=== PATIENT | female | born 1935 | race Caucasian/White ===

== ENCOUNTER 2019-01-30 13:10 | Inpatient (IN) | payer MEDICARE, BC ==
[~2019-01-30] VITALS: Ht 157.5 cm; Wt 57.1 kg
[2019-01-30] MEDS ORDERED: ACETAMINOPHEN 500 MG TABLET PO ONE (13:30)
[2019-01-30 13:50] VITALS: BP 136/85
[2019-01-30] MEDS ORDERED: FOLI-17 PO (14:05)
[2019-01-30] MEDS ORDERED: AMLO-150 PO (14:05)
[2019-01-30] MEDS ORDERED: SOLI5TAB2 PO (14:05)
[2019-01-30] MEDS ORDERED: HYDR30CR7 TP (14:05)
[2019-01-30] MEDS ORDERED: potassium (14:05)
[2019-01-30] MEDS ORDERED: LACTATED RINGERS 1,000 ML IV SCH (14:10)
[2019-01-30] MEDS ORDERED: PLEASE ENTER HEIGHT AND WEIGHT MC SCH (14:30)
[2019-01-30 14:35] LABS: CULTURE INDICATED? YES; MICROSCOPIC INDICATED
[2019-01-30] MEDS ORDERED: FENTANYL PF 250 MCG/5ML ONE (16:46)
[2019-01-30] MEDS ORDERED: DEXAMETHASONE 4 MG/ML, 1ML ONE (17:04)
[2019-01-30] MEDS ORDERED: ROCURONIUM 10 MG/ML,10ML ONE (17:04)
[2019-01-30] MEDS ORDERED: PROPOFOL 10 MG/ML, 20ML ONE (17:04)
[2019-01-30] MEDS ORDERED: CEFAZOLIN 1,000 MG ONE (17:04)
[2019-01-30] MEDS ORDERED: SUCCINYLCHOLINE 20 MG/ML, 10ML ONE (17:04)
[2019-01-30] MEDS ORDERED: GENTAMICIN 80 MG/2 ML ONE (17:28)
[2019-01-30] MEDS ORDERED: MIDAZOLAM 1 MG/ML, 2ML IV PRN (18:30)
[2019-01-30] MEDS ORDERED: EPHEDRINE 50 MG/ML, 1ML IM PRN (18:30)
[2019-01-30] MEDS ORDERED: hydrALAzine 20 MG/ML, 1ML IV PRN (18:30)
[2019-01-30] MEDS ORDERED: EPHEDRINE 50 MG/ML, 1ML IVPush PRN (18:30)
[2019-01-30] MEDS ORDERED: ONDANSETRON ODT 8 MG PO PRN (18:30)
[2019-01-30] MEDS ORDERED: ONDANSETRON 2MG/ML, 2ML IV PRN ×2 (18:30→22:00)
[2019-01-30] MEDS ORDERED: DIPHENHYDRAMINE 50 MG/ML, 1ML IVPush PRN (18:30)
[2019-01-30] MEDS ORDERED: OXYcodone 5 MG/5 ML ORAL.SOL UDC PO PRN (18:30)
[2019-01-30] MEDS ORDERED: METOPROLOL 1 MG/ML, 5ML IV PRN (18:30)
[2019-01-30] MEDS ORDERED: MORPHINE SULFATE 4 MG/ML, 1ML IVPush PRN (18:30)
[2019-01-30] MEDS ORDERED: FENTANYL PF 100 MCG/2ML ONE (19:41)
[2019-01-30] MEDS ORDERED: OXYcodone 5 MG/5 ML ORAL.SOL UDC ONE (19:41)
[2019-01-30] MEDS ORDERED: hydrALAzine 20 MG/ML, 1ML ONE (19:42)
[2019-01-30] MEDS: FENTANYL PF 100 MCG/2ML IV PRN ×3 (19:47→20:07)
[2019-01-30] MEDS ORDERED: OPIUM/BELLADONNA SUPP.RECT 16.2-30 MG PR PRN (22:00)
[2019-01-30] MEDS: D5%-0.45NACL+KCL 20MEQ 1,000 ML IV SCH (23:13)
[2019-01-30] MEDS: ACETAMINOPHEN 325 MG TABLET PO PRN (23:52)
[2019-01-31 00:18] VITALS: BP 132/83
[2019-01-31] MEDS: CEFAZOLIN PMX 1GM/50ML 50 ML IV SCH ×2 (01:38→09:43)
[2019-01-31] MEDS: GENTAMICIN 80 MG in SODIUM CHLORIDE 0.9% 48 ML IV SCH ×2 (02:36→10:35)
[2019-01-31 04:36] VITALS: BP 118/77
[2019-01-31] MEDS: ACETAMINOPHEN 325 MG TABLET PO PRN ×2 (04:42→12:27)
[2019-01-31 07:34] VITALS: BP 102/67
[2019-01-31] MEDS ORDERED: AMLODIPINE 5 MG TABLET PO SCH (09:00)
[2019-01-31] MEDS ORDERED: HYDROCORTISONE CRM 2.5%, 20GM TP SCH (09:00)
[2019-01-31] MEDS ORDERED: SOLIFENACIN PO SCH (09:00)
[2019-01-31 09:11] LABS: ANION GAP 6 mmol/L (5-15); CALCIUM 7.7 mg/dL (8.5-10.1); CHLORIDE 111 mmol/L (98-107); CREATININE 0.81 mg/dL (0.55-1.02)
[2019-01-31] MEDS: D5%-0.45NACL+KCL 20MEQ 1,000 ML IV SCH (11:20)
[2019-02-26] MEDS ORDERED: FAMO20TA37 PO (10:01)
== END 2019-01-31 14:10 | disposition home or self-care (01) | DRG 669 ==
LOC: OUT 13:10 → 4NOR 21:27 → OUT 22:20 → DCLOUNGE 01-31 13:45
PROVIDERS: ADMIT Urology; ATTEND Urology
PROC: 0TBB8ZZ Excision of Bladder, Via Natural or Artificial Opening Endoscopic (ICD-10-PCS; principal; 2019-01-30 15:00)
DX: C67.9 Malignant neoplasm of bladder, unspecified (principal); R71.0 Precipitous drop in hematocrit; I10 Essential (primary) hypertension; N32.89 Other specified disorders of bladder; F41.9 Anxiety disorder, unspecified; H91.8X3 Other specified hearing loss, bilateral; M19.90 Unspecified osteoarthritis, unspecified site; F32.9 Major depressive disorder, single episode, unspecified; Z88.3 Allergy status to other anti-infective agents; Z88.2 Allergy status to sulfonamides; Z88.8 Allergy status to other drugs, medicaments and biological substances
CPT/HCPCS: 36415; 80048; 81001; 85014; 85018; 87086; 88305; 93005; G0378; J0690; J1100; J2704; J3010; J0330; J0360; J1580; J3480; J7120

== ENCOUNTER 2019-02-27 11:26 | Day surgery (SDC) | payer MEDICARE, BC ==
[2019-02-26 09:51] VITALS: BP 142/84
[~2019-02-27] VITALS: Ht 157.5 cm; Wt 53.0 kg
[~2019-02-27 11:26] MED LIST: AMLO-150 PO; FAMO20TA37 PO; FOLI-17 PO; HYDR30CR7 TP; SOLI5TAB2 PO; potassium
[2019-02-27] MEDS ORDERED: LACTATED RINGERS 1,000 ML IV SCH (12:09)
[2019-02-27] MEDS ORDERED: GEMCITABINE HCL BLADIN ONE (13:15)
[2019-02-27] MEDS ORDERED: STERILE WATER BLADIN ONE (13:15)
[2019-02-27] MEDS ORDERED: GEMCITABINE HCL IV ONE (13:30)
[2019-02-27] MEDS ORDERED: STERILE WATER IV ONE (13:30)
[2019-02-27] MEDS ORDERED: FENTANYL PF 250 MCG/5ML ONE (13:38)
[2019-02-27] MEDS ORDERED: CEFAZOLIN 1,000 MG ONE ×2 (13:39)
[2019-02-27] MEDS ORDERED: SODIUM CHLORIDE 0.9% PF 10ML ONE (13:39)
[2019-02-27] MEDS ORDERED: PROPOFOL 10 MG/ML, 20ML ONE (13:47)
[2019-02-27] MEDS ORDERED: DEXAMETHASONE 4 MG/ML, 1ML ONE (13:47)
[2019-02-27] MEDS ORDERED: ONDANSETRON 2MG/ML, 2ML ONE (13:47)
[2019-02-27] MEDS ORDERED: OXYcodone 5 MG/5 ML ORAL.SOL UDC PO PRN (14:00)
[2019-02-27] MEDS ORDERED: ONDANSETRON ODT 8 MG PO PRN (14:00)
[2019-02-27] MEDS ORDERED: hydrALAzine 20 MG/ML, 1ML IV PRN (14:00)
[2019-02-27] MEDS ORDERED: FENTANYL PF 100 MCG/2ML IV PRN (14:00)
[2019-02-27] MEDS ORDERED: PROMETHAZINE 25 MG/ML, 1ML IV PRN (14:00)
[2019-02-27] MEDS ORDERED: MORPHINE SULFATE 4 MG/ML, 1ML IVPush PRN (14:00)
[2019-02-27] MEDS ORDERED: ONDANSETRON 2MG/ML, 2ML IV PRN (14:00)
[2019-02-27] MEDS ORDERED: PROMETHAZINE 12.5 MG SUPP PR PRN (14:00)
[2019-02-27] MEDS ORDERED: LABETALOL 5MG/ML, 20ML IV PRN (14:00)
[2019-02-27] MEDS ORDERED: PROMETHAZINE 25 MG SUPP PR PRN (14:00)
[2019-02-27] MEDS ORDERED: PROMETHAZINE 25 MG/ML, 1ML IM PRN ×2 (14:00)
[2019-02-27] MEDS ORDERED: MEPERIDINE/PF 25MG/0.5ML IVPush PRN (14:00)
[2019-02-27] MEDS ORDERED: OXYcodone 5 MG/5 ML ORAL.SOL UDC ONE (14:43)
[2019-02-27] MEDS ORDERED: PHENAZOPYRIDINE 200 MG TABLET ONE (14:49)
[2019-02-27] MEDS ORDERED: HYDROmorphone 2 MG/ML, 1ML ONE (14:49)
[2019-02-27] MEDS: HYDROmorphone 2 MG/ML, 1ML IVPush PRN ×2 (14:51→15:13)
[2019-02-27] MEDS ORDERED: LABETALOL 5 MG/ML SYRINGE IV PRN (14:56)
[2019-02-27] MEDS ORDERED: PHENAZOPYRIDINE 200 MG TABLET PO ONE (15:00)
== END 2019-02-27 17:45 | disposition home or self-care (01) ==
LOC: OUT 11:26
PROVIDERS: ATTEND Urology
DX: N30.20 Other chronic cystitis without hematuria (principal); Z79.899 Other long term (current) drug therapy; Z88.0 Allergy status to penicillin; Z88.2 Allergy status to sulfonamides; Z88.8 Allergy status to other drugs, medicaments and biological substances; Z91.041 Radiographic dye allergy status; Z85.51 Personal history of malignant neoplasm of bladder; Z98.890 Other specified postprocedural states
CPT/HCPCS: 52234; 88305; J0690; J1100; J1170; J2405; J2704; J3010; J7120; J9201

== ENCOUNTER 2019-08-28 08:25 | Day surgery (SDC) | payer MEDICARE, BC ==
[~2019-08-28] VITALS: Ht 160 cm; Wt 53.5 kg
[~2019-08-28 08:25] MED LIST changes: +BUME1TAB21 PO; +CALC-112 PO; -potassium; +potassium PO
[2019-08-28] MEDS ORDERED: FENTANYL PF 100 MCG/2ML ONE ×2 (09:23→10:56)
[2019-08-28] MEDS ORDERED: LACTATED RINGERS 1,000 ML IV SCH (09:24)
[2019-08-28 09:26] VITALS: BP 156/91
[2019-08-28] MEDS ORDERED: ACETAMINOPHEN 500 MG TABLET PO ONE (09:30)
[2019-08-28] MEDS ORDERED: GABAPENTIN 300 MG CAPSULE PO ONE (09:30)
[2019-08-28] MEDS ORDERED: MITOMYCIN 40 MG IVPB ONE (09:55)
[2019-08-28] MEDS ORDERED: CEFAZOLIN 1,000 MG ONE (09:59)
[2019-08-28] MEDS ORDERED: ROCURONIUM 10 MG/ML,10ML ONE (09:59)
[2019-08-28] MEDS ORDERED: GLYCOPYRROLATE 0.2MG/1ML, 5ML ONE (09:59)
[2019-08-28] MEDS ORDERED: PROPOFOL 10 MG/ML, 20ML ONE (09:59)
[2019-08-28] MEDS ORDERED: EPHEDRINE 50 MG/ML, 1ML ONE (09:59)
[2019-08-28] MEDS ORDERED: DEXAMETHASONE 4 MG/ML, 1ML ONE (09:59)
[2019-08-28] MEDS ORDERED: ONDANSETRON 2MG/ML, 2ML ONE (09:59)
[2019-08-28] MEDS ORDERED: PHENYLEPHRINE 10 MG/ML ONE (09:59)
[2019-08-28] MEDS ORDERED: PROMETHAZINE 25 MG/ML, 1ML IV PRN (10:00)
[2019-08-28] MEDS ORDERED: MITOMYCIN 40 MG in STERILE WATER 40 ML INTVESIC ONE (10:00)
[2019-08-28] MEDS ORDERED: HYDROmorphone 2 MG/ML, 1ML IVPush PRN (10:00)
[2019-08-28] MEDS ORDERED: FENTANYL PF 100 MCG/2ML IV PRN (10:00)
[2019-08-28] MEDS ORDERED: OXYcodone 5 MG/5 ML ORAL.SOL UDC PO PRN (10:00)
[2019-08-28] MEDS ORDERED: HALOPERIDOL 5 MG/ML IV PRN (10:00)
[2019-08-28] MEDS ORDERED: MEPERIDINE/PF 25MG/ML,1ML IVPush PRN (10:00)
[2019-08-28] MEDS ORDERED: INDIGO CARMINE 0.8%, 5ML ONE (10:33)
[2019-08-28] MEDS ORDERED: FLUORESCEIN SODIUM 500 MG/5 ML ONE (10:33)
[2019-08-28] MEDS ORDERED: OPIUM/BELLADONNA SUPP.RECT 16.2-60 MG ONE (11:09)
== END 2019-08-28 14:20 | disposition home or self-care (01) ==
LOC: OUT 08:25
PROVIDERS: ATTEND Urology
DX: C67.9 Malignant neoplasm of bladder, unspecified (principal); I10 Essential (primary) hypertension; F32.9 Major depressive disorder, single episode, unspecified; F41.9 Anxiety disorder, unspecified; M19.90 Unspecified osteoarthritis, unspecified site; Z79.899 Other long term (current) drug therapy; Z88.1 Allergy status to other antibiotic agents; Z88.2 Allergy status to sulfonamides; Z88.8 Allergy status to other drugs, medicaments and biological substances; Z90.49 Acquired absence of other specified parts of digestive tract
CPT/HCPCS: 51720; 52234; 52332; 88307; 93005; C1726; C1758; C1769; C2617; J0690; J1100; J2370; J2405; J2704; J3010; J7120; J9280